=== PATIENT | female | born 1965 | race Caucasian/White ===

== ENCOUNTER 2020-03-23 10:03 | Outpatient (CLI) | payer OTHER, SELFPAY ==
--- NOTE | ~2020-03-23 | MM_ITS ---
EXAMINATION: MM screening jian BI w edward HISTORY: Screening mammogram TECHNIQUE: Craniocaudal and mediolateral oblique 3-D tomosynthesis images were obtained and synthetic 2-D images were generated. CAD analysis was submitted and interpreted. COMPARISON: 03/12/2018, 11/12/2013, 11/05/2012 bilateral digital screening mammogram examinations BREAST PARENCHYMAL COMPOSITION: There are scattered areas of fibroglandular density. FINDINGS: There are subtle microcalcifications particularly in the subareolar area; magnification vie ws are recommended. There is asymmetry in the upper outer left breast. Compression views are recommended. IMPRESSION: 1. Right multiple calcifications and left mammographic asymmetry 2. Bilateral diagnostic mammography is recommended, with ultrasound if required. BI-RADS Category 0: Incomplete: Needs additional imaging evaluation. Reviewed, dictated and finalized at location A. RTISING SALES ASSOCIATE IMPRESSION: 1. Right multiple calcifications and left mammographic asymmetry 2. Bilateral diagnostic mammography is recommended, with ultrasound if required . BI-RADS Category 0: Incomplete: Needs additional imaging evaluation.
== END 2020-03-23 10:04 | disposition home or self-care (01) ==
LOC: ANHIMG 10:06
PROVIDERS: PCP Emergency Medicine; Visit Provider Obstetrics & Gynecology
DX: Z12.31 Encounter for screening mammogram for malignant neoplasm of breast (principal); R92.8 Other abnormal and inconclusive findings on diagnostic imaging of breast
CPT/HCPCS: 77063; 77067

== ENCOUNTER 2020-04-20 13:26 | Outpatient (CLI) | payer OTHER, SELFPAY ==
--- NOTE | ~2020-04-20 | MMUS_ITS ---
EXAMINATION: MM diagnostic mammo BI, US breast BI complete HISTORY: Follow-up right breast calcifications and left breast asymmetries. TECHNIQUE: Additional 3-D tomosynthesis images of the breasts were performed and synthetic 2-D images were generated. CAD analysis was submitted and interpreted. High resolution bilateral breast ultraso und was performed. COMPARISON: Comparison to multiple prior studies sequentially, with oldest reviewed study dated 05/2010. BREAST PARENCHYMAL COMPOSITION: The breasts are heterogenously dense, which may obscure small masses. FINDINGS: MAMMOGRAPHIC FINDINGS: There are clustered calcifications upper central aspect of the right breast, middle third. These calc ifications appear to layer on the MLO and medial lateral view, likely benign milk of calcium. Bilater al breast asymmetries are less dense with spot compression views. No discrete mass identified. ULTRASOUND: Right breast ultrasound: At 8:00 near the nipple there is a 6 6 mm cyst. At 9:00, 6 cm from the nipple, there is a 1 cm cyst. Left breast ultrasound: At 3:00 near the nipple there is a 3 mm cyst. No suspicious masses are identified in either breast by ultrasound to suggest malignancy. IMPRESSION: 1. Probable benign right breast calcifications. Benign findings of the left breast. 2. Recommend 6 month follow-up diagnostic right mammogram BI-RADS category 3, probably benign findings. Reviewed, dictated and finalized at location A. HEALTH CASE MANAGER IMPRESSION: 1. Probable benign right breast calcifications. Benign findings of the left jadon ast. 2. Recommend 6 month follow-up diagnostic right mammogram BI-RADS category 3, probably benign findings.
== END 2020-04-20 13:27 | disposition home or self-care (01) ==
PROVIDERS: PCP Emergency Medicine; Visit Provider Obstetrics & Gynecology
DX: N60.02 Solitary cyst of left breast (principal); N60.01 Solitary cyst of right breast
CPT/HCPCS: 76641; 77066

== ENCOUNTER 2021-08-17 09:00 | Outpatient (CLI) | payer OTHER, SELFPAY ==
--- NOTE | ~2021-08-17 | MM_ITS ---
EXAMINATION: MM screening jian BI w edward HISTORY: Screening TECHNIQUE: Craniocaudal and mediolateral oblique 3-D tomosynthesis images were obtained and synthetic 2-D images were generated. CAD analysis was submitted and interpreted. COMPARISON: Comparison to multiple prior studies sequentially, with oldest reviewed study dated 09/04. BREAST PARENCHYMAL COMPOSITION: The breasts are heterogeneously dense, which may obscure small masses . FINDINGS: There is a developing focal asymmetry in the central aspect of the right breast, middle thi rd. There are a few punctate associated calcifications. The left breast is stable without evidence fo r malignancy. IMPRESSION: 1. Developing focal asymmetry centrally in the right breast with associated calcification. 2. Additional mammographic views and possible breast ultrasound are recommended. BI-RADS Category 0: Incomplete: Needs additional imaging evaluation. Reviewed, dictated and finalized at location A. IMPRESSION: 1. Developing focal asymmetry centrally in the right breast with associated malik cification. 2. Additional mammographic views and possible breast ultrasound are recommended . BI-RADS Category 0: Incomplete: Needs additional imaging evaluation.
== END 2021-08-17 09:01 | disposition home or self-care (01) ==
LOC: ANHIMG 09:02
PROVIDERS: PCP Emergency Medicine; Visit Provider Obstetrics & Gynecology
DX: Z12.31 Encounter for screening mammogram for malignant neoplasm of breast (principal); R92.8 Other abnormal and inconclusive findings on diagnostic imaging of breast
CPT/HCPCS: 77063; 77067

== ENCOUNTER 2021-09-17 11:20 | Outpatient (CLI) | payer OTHER, SELFPAY ==
--- NOTE | ~2021-09-17 | MMUS_ITS ---
EXAMINATION: MM diagnostic mammo unilat RT, US breast RT limited HISTORY: Developing focal asymmetry with calcification reported centrally in right breast on 2 screening mammogram TECHNIQUE: ML 3-D tomosynthesis images of the right breast were performed and synthetic 2-D images we re generated. Magnification views of the right breast in 3 projections. CAD analysis was submitted an d interpreted. High resolution pre-12:00 right breast ultrasound was performed. COMPARISON: 08/17/2021 bilateral screening mammogram 04/20/2020 bilateral diagnostic mammography and bilateral complete breast ultrasound examination 03/23/2020 bilateral screening mammogram 03/12/2018 bilateral screening mammogram FINDINGS: MAMMOGRAPHIC FINDINGS: Occasional scattered benign microcalcifications are noted. No malignant calcification is evident. No suspicious reproducible mass or significant new or developing density is evident. ULTRASOUND: 9:00 4 cm from nipple: Parallel circumscribed 2.9 x 6.9 x 5.2 mm sonolucency with through transmissio n consistent with simple cyst 9:00 6 cm from nipple: 5 x 3 x 6.4 mm probable septated cyst, with no posterior features; six-month t argeted ultrasound follow-up is recommended. 10:00 6 cm from nipple: Parallel circumscribed 3 x 8 x 7.4 mm simple cyst with through transmission p osterior enhancement 11:00 3 cm from nipple: 12 x 6 x 14 mm septated cyst with through transmission and posterior enhancem ent IMPRESSION: 1. Probable benign cysts 2. 6 month targeted right breast ultrasound follow-up is recommended with particular attention to 9:0 0 6 cm from nipple BI-RADS category 3, probably benign findings. Reviewed, dictated and finalized at location A. IMPRESSION: 1. Probable benign cysts 2. 6 month targeted right breast ultrasound follow-up is recommended with parti cular attention to 9:00 6 cm from nipple BI-RADS category 3, probably benign findings.
== END 2021-09-17 11:21 | disposition home or self-care (01) ==
PROVIDERS: PCP Emergency Medicine; Visit Provider Obstetrics & Gynecology
DX: N60.01 Solitary cyst of right breast (principal); R92.1 Mammographic calcification found on diagnostic imaging of breast
CPT/HCPCS: 76642; 77065

== ENCOUNTER 2021-10-13 09:15 | Outpatient (CLI) | payer OTHER, SELFPAY ==
[2021-10-13 09:46] LABS: Alanine Aminotransferase 15 U/L (6-35); Aspartate Amino Transferase 50 U/L (14-36)
== END 2021-10-13 09:16 | disposition home or self-care (01) ==
LOC: ANHLAB 09:22
PROVIDERS: PCP Emergency Medicine; Visit Provider Podiatrist Foot & Ankle Surgery
DX: B35.1 Tinea unguium (principal)
CPT/HCPCS: 36415; 84450; 84460

== ENCOUNTER 2022-01-17 11:13 | Outpatient (CLI) | payer OTHER, SELFPAY ==
[2022-01-17 11:46] LABS: Alanine Aminotransferase 18 U/L (6-35); Aspartate Amino Transferase 50 U/L (14-36)
== END 2022-01-17 11:14 | disposition home or self-care (01) ==
LOC: ANHLAB 11:17
PROVIDERS: PCP Emergency Medicine; Visit Provider Podiatrist Foot & Ankle Surgery
DX: B35.1 Tinea unguium (principal)
CPT/HCPCS: 36415; 84450; 84460

== ENCOUNTER 2022-04-19 11:10 | Outpatient (CLI) | payer OTHER, SELFPAY ==
--- NOTE | ~2022-04-19 | US_ITS ---
US breast RT limited DATE: 04/19/2022 11:52 INDICATION: Six-month follow-up of probably benign septated cyst at 9:00 6 cm from nipple TECHNIQUE: Real-time and color flow imaging targeted at 9:00 6 cm from nipple COMPARISON: 09/17/2021 Limited right breast ultrasound FINDINGS: There is interval decreased size of the previously reported septated cyst at 9:00, currentl y measuring approximately 3.5 x 2.4 x 4.4 mm, compared to 2 6.2 mm dimension on 09/17/2021. IMPRESSION: BI-RADS Category 2: Benign Recommendation: Routine annual mammographic screening Reviewed, dictated and finalized at Location A. Reviewed, dictated and finalized at location A. NCIAL ANALYST ACCOUNTANT
== END 2022-04-19 11:11 | disposition home or self-care (01) ==
PROVIDERS: PCP Emergency Medicine; Visit Provider Obstetrics & Gynecology
DX: N60.11 Diffuse cystic mastopathy of right breast (principal)
CPT/HCPCS: 76642

== ENCOUNTER 2022-05-10 09:52 | Outpatient (CLI) | payer OTHER, SELFPAY ==
[2022-05-10 10:22] LABS: Alanine Aminotransferase 19 U/L (6-35); Aspartate Amino Transferase 31 U/L (14-36)
== END 2022-05-10 09:53 | disposition home or self-care (01) ==
LOC: ANHLAB 09:54
PROVIDERS: PCP Emergency Medicine; Visit Provider Podiatrist Foot & Ankle Surgery
DX: B35.1 Tinea unguium (principal)
CPT/HCPCS: 36415; 84450; 84460

== ENCOUNTER 2022-12-27 11:20 | Outpatient (CLI) | payer OTHER, SELFPAY ==
[2022-12-29 05:26] LABS: FSH 139.7 mIU/mL (***)
[2023-01-01 15:07] LABS: Estradiol, Ultrasensitive 3 pg/mL
== END 2022-12-27 11:21 | disposition home or self-care (01) ==
LOC: ANHLAB 11:24
PROVIDERS: PCP Emergency Medicine; Visit Provider Obstetrics & Gynecology
DX: N95.1 Menopausal and female climacteric states (principal)
CPT/HCPCS: 36415; 82670; 83001

== ENCOUNTER 2023-08-16 14:51 | Outpatient (CLI) | payer OTHER, SELFPAY ==
--- NOTE | 2023-08-16 15:20 | ECG_ITS ---
SEE SCANNED COPY FOR CONFIRMED REPORT MTDD
== END 2023-08-16 14:52 | disposition home or self-care (01) ==
PROVIDERS: PCP Nurse Practitioner Adult Health
DX: Z01.810 Encounter for preprocedural cardiovascular examination (principal); Z41.1 Encounter for cosmetic surgery
CPT/HCPCS: 93005

== ENCOUNTER 2023-08-16 15:47 | Outpatient (CLI) | payer OTHER, SELFPAY ==
--- NOTE | ~2023-08-16 | MM_ITS ---
EXAMINATION: MM screening jian BI w edward HISTORY: Screening mammogram TECHNIQUE: Craniocaudal and mediolateral oblique 3-D tomosynthesis images were obtained and synthetic 2-D images were generated. CAD analysis was submitted and interpreted. COMPARISON: 04/19/2022 Limited right breast ultrasound examination 09/17/2021 diagnostic right mammogram and limited right breast ultrasound examination 08/17/2021 bilateral screening mammogram BREAST PARENCHYMAL COMPOSITION: The breasts are heterogeneously dense, which may obscure small masses . FINDINGS: There is no evidence of suspicious mass, calcification, or architectural distortion to sugg est malignancy in either breast. There has been no suspicious interval change. IMPRESSION: 1. No mammographic evidence of malignancy. 2. Recommend routine screening mammography in one year. BI-RADS Category 1: Negative Reviewed, dictated and finalized at location A.
== END 2023-08-16 15:48 | disposition home or self-care (01) ==
PROVIDERS: PCP Nurse Practitioner Adult Health; Visit Provider Obstetrics & Gynecology
DX: Z12.31 Encounter for screening mammogram for malignant neoplasm of breast (principal)
CPT/HCPCS: 77063; 77067

== ENCOUNTER 2023-11-08 10:03 | Emergency (ER) | payer OTHER, SELFPAY ==
[2023-11-08 10:11] VITALS: BP 121/75; PULSE 74; RESP 16; TEMP 36.5; O2SAT 100
--- NOTE | 2023-11-08 10:11 | ED.SKABFB ---
HPI - Skin/Abscess/Foreign Bdy General Chief complaint: Skin/Abscess/Foreign Body Stated complaint: RASH Time Seen by Provider: 11/08/23 10:11 Source: patient Mode of arrival: ambulatory Limitations: no limitations History of Present Illness HPI narrative: 57 yo female presented for c/o rash to left buttock since 10/25. Pt states she has been running and sweating etc. Endorses mild itching and pain. denies drainage to the site. Has applied Gold Summers powder, powder spray, and has been trying to keep the site dry. Related Data Home Medications Medication Instructions Recorded Confirmed cetirizine 10 mg capsule (Zyrtec) 10 mg PO DAILY PRN 12/21/21 01/02/23 alprazolam 0.25 mg tablet mg 11/08/23 11/08/23 proparacaine 0.5 % eye drops drp 11/08/23 triamcinolone acetonide 0.1 % applic topical 11/08/23 topical cream Allergies Allergy/AdvReac Type Severity Reaction Status Date / Time No Known Allergies Allergy Verified 11/08/23 10:08 Review of Systems Review of Systems: CONSTITUTIONAL: Denies body aches, fever, chills, or sweats. EYES: Denies visual changes, redness, or discharge. ENT: Denies rhinorrhea, congestion CARDIOVASCULAR: Denies chest pain, palpitations, or edema. RESPIRATORY: Denies cough or dyspnea. GASTROINTESTINAL: Denies abdominal pain, nausea, vomiting, or diarrhea. SKIN: reports rash to buttocks MUSCULOSKELETAL: Denies back pain, joint pain, or myalgia. NEUROLOGIC: Denies headache, numbness, tingling, or weakness. 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 Please see nursing chart for further information. There is no relevant family history pertinent to the presenting complaint Exam Narrative: GENERAL: Well-appearing ENT: Mucous membranes moist. Oropharynx without edema, erythema or lesions. CHEST: Clear to auscultation. HEART: Regular rate and rhythm. SKIN: Warm, dry. Left medial buttock with approx 0.5 cm area of excoriated skin; right medial buttock with mildly erythematous patch c/w yeast opposite to the lesion. No drainage, nontender. NEURO: Alert and oriented x3. Course Course Emergency Course: Patient is aware of diagnosis, understands and agrees to treatment plan. Anticipatory guidance given. Patient agrees to follow-up as directed and is aware of reasons to seek care at the emergency department. Portions of this record may have been created with voice recognition software Level of Care: Express Care Visit Vital Signs Vital signs: Vital Signs Temperature 97.7 F
[2023-11-08 10:36] VITALS: BP 121/75; PULSE 74; RESP 16; TEMP 36.5; O2SAT 100
== END 2023-11-08 10:41 | disposition home or self-care (01) ==
PROVIDERS: Emergency Provider Nurse Practitioner Family
DX: L30.9 Dermatitis, unspecified (principal)
CPT/HCPCS: 99213; G0463

== ENCOUNTER 2024-06-24 11:03 | Emergency (ER) | payer OTHER, SELFPAY ==
--- NOTE | 2024-06-24 11:04 | ED.URI ---
HPI - URI/Sore Throat General Chief Complaint: Upper Respiratory Infection Stated Complaint: Upper Respiratory Symptoms Time Seen by Provider: 06/24/24 11:04 Source: patient Mode of arrival: ambulatory Limitations: no limitations History of Present Illness HPI Narrative: Sherin is a 58-year-old female patient presenting to the clinic today with complaints of feeling feverish, runny nose, cough, congestion, sore throat, and body aches. She reports the symptoms have been going on for approximately 2 days. Denies any chest pain or shortness of breath. MD elicited complaint: fever, cough, sore throat and nasal congestion Related Data Home Medications ?Medication ?Instructions ?Recorded ?Confirmed ?Last Taken ?Type cetirizine 10 mg capsule (Zyrtec) 10 mg PO DAILY PRN 12/21/21 01/15/24 Unknown History alprazolam 0.25 mg tablet mg 11/08/23 01/15/24 Unknown History Allergies Allergy/AdvReac Type Severity Reaction Status Date / Time No Known Allergies Allergy Verified 06/24/24 11:19 Review of Systems Review of Systems: Pertinent positives per HPI. Patient denies any rash, headache, visual changes, dizziness, shortness of breath, chest pain, palpitations, nausea, vomiting, diarrhea, constipation, abdominal pain, or any urinary issues. 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 Abnormal Pap smear of cervix 04/02/2018 LGSIL +Hpv Cyst of right breast Calcification of right breast on mammography Surgical History Surgical History Hx of breast reduction, elective (09/26/23) History of tubal ligation (~1996) History of hemorrhoidectomy History of colposcopy with cervical biopsy 05/23/18 benign Family History Family History Father Acute myocardial infarction Grandparent Carcinoma of colon maternal grandmother Other Breast cancer paternal aunt Social History Social History Smoking status: Never smoker Second hand tobacco smoke exposure: No Alcohol intake: former Alcohol use details: social 1-2 month ? 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 There is no relevant family history pertinent to the patient complaint. Exam Narrative: General: Well-developed, well nourished, in no apparent distress Head: Normocephalic, atraumatic Eyes: Pupils equally round and reactive to light bilaterally, EOM intact, sclera and conjunctive clear, no discharge, lids normal Ears: TMs intact and clear, ear canals clear, no drainage, grossly hearing normal. Nose: Nares patent, clear nasal discharge, no inflammation, no sinus tenderness. Mouth: Oral pharynx red without lesions or masses, good dentition, MMM. Postnasal drip Neck: Supple, trachea midline, no enlargement of anterior or posterior cervical nodes, no thyroid masses or goiter palpable. Cardio: Regular rate and rhythm, s1 and s2 normal, no murmur appreciated. Resp: Clear to auscultation bilaterally, no rhonchi, rales, wheezing or rubs Course Course Emergency Course: Portions of this record may have been created with voice recognition software. Level of Care: Express Care Visit Vital Signs Vital signs: Vital Signs Temperature 37.0 C 06/24/24 11:14 Pulse Rate 104 H 06/24/24 11:14 Respiratory Rate 18 06/24/24 11:14 Blood Pressure 114/93 H 06/24/24 11:14 Pulse Oximetry 100 06/24/24 11:14 Oxygen Delivery Room Air 06/24/24 11:14 Temperature 37.0 C 06/24/24 11:14 Pulse Rate 104 H 06/24/24 11:14 Respiratory Rate 18 06/24/24 11:14 Blood Pressure 114/93 H 06/24/24 11:14 Pulse Oximetry 100 06/24/24 11:14 Oxygen Delivery Room Air 06/24/24 11:14 Vital signs reviewed MDM - URI/Sore Throat MDM Narrative Medical decision making narrative: At the time of visit patient is resting comfortably on the exam table. Patient appears to be nontoxic. Labs: COVID, influenza, and strep test were all negative in the clinic today. We will send strep for culture. Plan: I suspect patient has URI with cough and congestion. Prescription for prednisone was sent to the pharmacy. Supportive measures were discussed with the patient and they voiced understanding discharge instructions and agrees to treatment plan. Return precautions reviewed Differential Diagnosis Differential diagnosis: Likely upper respiratory infection, otitis media, sinusitis, viral infection, bronchitis, influenza, pharyngitis and other (COVID) Discharge Plan Discharge Clinical Impression: Upper respiratory infection with cough and congestion, Pharyngitis Patient Disposition: Home, Self-Care Condition: Stable Instructions: Antibiotic Form, Pharyngitis (ED), Cold Symptoms (ED) Additional Instructions: COVID, influenza, and strep test were all negative in the clinic today. We will send strep for culture if this comes back positive we will contact him place you on antibiotics at that time. Take prescription medications only as prescribed-prednisone Increase fluids and stay well hydrated Tylenol/motrin for pain/fever Flonase and OTC antihistamines as directed Vicks vapor rub to open sinuses Sinus rinses for congestion Cepacol spray, cough drops, throat lozenges, warm tea with honey/lemon, gargle salt water to soothe throat BRAT diet for diarrhea Clear liquids x 24 hours then advance as tolerated for nausea/vomiting Go to the ED if you develop a worsening in your condition- high fever not controlled by Tylenol or Motrin, dehydration, weakness, lethargy, shortness of breath, or chest pain. Follow up with your PCP in 3-5 days if symptoms persist. Patient Language: Kazakh Prescriptions: New prednisone 20 mg tablet 40 mg PO DAILY 5 Days Qty: 10 0RF No Action alprazolam 0.25 mg tablet estradiol 0.01 % (0.1 mg/gram) cream 1 g vaginal 2XW Qty: 42.5 3RF Zyrtec 10 mg capsule 10 mg PO DAILY PRN estradiol 1 mg tablet 1 mg PO DAILY Qty: 90 3RF progesterone micronized [Prometrium] 200 mg capsule 200 mg PO QHS Qty: 90 0RF valacyclovir [Valtrex] 500 mg tablet 500 mg PO Q12H Qty: 14 0RF Rx Instructions: take 1 tab every 12 hours for 7 days Follow-up/Referrals: PHYSICIAN,LEVEL GLASS FORMING MACHINE OPERATOR [Primary Care Provider] - Time of Disposition: 11:39 Quality NIHSS Nursing Documentation ED NIHSS nursing documentation: reviewed/agree
[2024-06-24 11:14] VITALS: BP 114/93; PULSE 104; RESP 18; TEMP 37; O2SAT 100
[2024-06-24 11:30] LABS: EDSTREPNEGPOS1 Negative (Negative)
[2024-06-24 11:38] LABS: EDCOVIDSCREEN Negative (Negative); EDINFLUASCREEN Negative (Negative); EDINFLUBSCREEN Negative (Negative)
== END 2024-06-24 11:43 | disposition home or self-care (01) ==
PROVIDERS: Emergency Provider Nurse Practitioner Family
DX: J06.9 Acute upper respiratory infection, unspecified (principal); R05.9 Cough, unspecified; J02.9 Acute pharyngitis, unspecified; Z20.822 Contact with and (suspected) exposure to COVID-19
CPT/HCPCS: 87081; 87426; 87804; 87880; 99213; G0463

== ENCOUNTER 2024-10-01 15:57 | Outpatient (CLI) | payer OTHER, SELFPAY ==
--- NOTE | ~2024-10-01 | MM_ITS ---
EXAMINATION: MM screening [facility] BI [facility] HISTORY: Screening TECHNIQUE: Craniocaudal and mediolateral oblique 3-D tomosynthesis images were obtained and synthetic 2-D images were generated. CAD analysis was submitted and interpreted. COMPARISON: Comparison to multiple prior studies sequentially, with oldest reviewed study dated 02/22. BREAST PARENCHYMAL COMPOSITION: Not dense: There are scattered areas of fibroglandular density. FINDINGS: There is a developing mass in the upper outer quadrant of the right breast, posterior third . There is architectural distortion in the upper central aspect of the right breast, posterior third, not definitely seen on prior study. There are developing asymmetries centered in the upper outer anita drant of the left breast. IMPRESSION: 1. Developing bilateral breast abnormalities discussed above. 2. Additional mammographic views and possible breast ultrasound are recommended. BI-RADS Category 0: Incomplete: Needs additional imaging evaluation. Reviewed, dictated and finalized at location B. IMPRESSION: 1. Developing bilateral breast abnormalities discussed above. 2. Additional mammographic views and possible breast ultrasound are recommended . BI-RADS Category 0: Incomplete: Needs additional imaging evaluation.
--- OUTSIDE RECORDS SUMMARY | 2024-10-01 17:07 | XMS_ITS | Continuity of Care Document ---
Author Organization [facility] Address [address] [place] [address] Phone Care Team Providers Care Baggage Clerk Name Role Phone Kahterine Martinez Unavailable Unavailabl e Allergies, Adverse Reactions, Alerts Substance Reaction Status Criticality No Known Allergies Active No Inform ation Procedures Procedure Date X-ray exam elbow, 3+ views Office/outpatient visit,est, mod 2023 X-ray exam elbow, 3+ views Heelbow Office/outpatient visit,new, mod 2023 Advance Directives Directive Yes / No Effective Date File Name No Information Encounters Encounter Description Practice Location Reason(s) For Visit Diagnoses Date Provider Providers Copied on Encounter [facility], [address], [id number], [place] tel:[phone] [facility] Injury of left elbow, initial encounterContusi on of left elbow, initial encounter 4 Deon Murphy. [address], [address], [place], [place], [id number], [place]. tel:[phone] Office/outpa tient visit,est, mod [facility], [address] [address], [place], [place], [id number], [place] tel:[phone] [facility] Left elbow (chief complaint) Contusion of left elbow, subsequent encounter b0 4 Chan Black. [address], [address], [place], [place], [id number], [place]. tel:[phone] Office/outpa tient visit,new, [facility], [address], [place], [place], [id number], [place] tel:[phone] [facility] Left elbow (chief complaint) Injury of left elbow, initial encounterContusi on of left elbow, initial encounter Chan Black. [address], [address], [place], [place], [id number], [place]. tel:[phone] Family History Family Member Type Diagnosis Age At Onset No Information Immunizations Vaccine Date Status Comments influenza, injectable, quadrivalent, (3 years or older) administered Note: pt refused ; S ource: Source Unspecified Payers Payer name Insurance type Covered green party ID Authoriza kayleigh(s) Nathen [id number] Social History Type Description Quantity Date Captured Comments Alcohol Use Details Unknown Caffeine Use Details Unknown Tobacco Use Status No Information Smoking Status No Information Sex Female Chief Complaint And Reason For Visit No Information Reason For Referral Reason For Referral No Information Plan Of Treatment Date Type Action Status Referral Ordered: X-ray exam elbow, 3+ views LT ordered History Of Present Illness Encounter Date Complaint History Of Prese nt Illness Left elbow Janene is over 3 weeks out from an injury which resulted in a contusion of the left elbow on May 12, 2023. She was last seen in the office 3 weeks ago on May 16, 2023. At that time I provided her with a Heelbo elbow pad. She has been wearing the elbow pad, but she tells me it is stretched out and does not fit well. She continues to have pain on the posterior left elbow. 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 She presents for follow-up Andressa Duff is seen i n the office today as a new patient. She presents with a left elbow injury. On May 12, 2023 she slipped on ice in her driveway and fell backwards. She hit her posterior left elbow on the driveway. She immediately had elbow pain. She went to and Urgent Care in [place], [place] and left elbow xrays were completed. She was referred to [facility]. While in the emergency department she was told she had an occult fracture of the left elbow. I independently reviewed the x-rays, and I do not appreciate a fracture. She was given a sling. Her left elbow pain and motion have significantly improved over the last several days. She denies numbness and tingling. She presents to the office today for evaluation and treatment of her left elbow injury Functional Status Date Functional Assessmen t No Information Instructions Date Instruction Additional Infor mation No Information Assessments Type Assessment Date assessment Injury of left elbow, initial en counter assessment Contusion of left elbow, initial encounter Patient Care Teams Name Effective Dates (start - stop) Status Members No Information
--- OUTSIDE RECORDS SUMMARY | 2024-10-01 17:07 | XMS_ITS | Data Portability ---
Author Organization [place] [facility], [facility] Address [address] [place] [phone] Assessment No assessment recorded. Plan of Treatment Reminders Order Date Submit Date Provider Last Modified By Organization Details Last Modified Time Details Appointments None recorded. Lab rapid SARS CoV 2 Ag, QL IA, respiratory specimen [address], [address] [place] [address], [place], [address], 13:41:53 rapid flu (A+B) [address], [address] [place] [address], [place], [address], 13:41:53 Referral None recorded. Procedures None recorded. Surgeries None recorded. Imaging None recorded. Medication Orders dexamethaso ne sodium phosphate 4 mg/mL injection solution 2022 023 [email or web address] Not available 14:02:44 azithromyci n 250 mg tablet 2022 023 [id number], [address] [place], [place], [phone], 13:42:01 Patient TargetsNo targets recorded. Patient Instructions Encounter Date Encounter Id Patient Instructions Last Modified By Organization Details Last Modified Time 08/15/2022 [id number] Discharge Instructions [email or web address] [id number] Not available 08/15/2022 13:41:53 Acute Sinusitis: Care Instructions [email or web address] Not available 08/15/2022 13:41:53 Reason for Referral None Reported. Results Created Date Observation Date Name Description Value Unit Range Abnormal Flag Note LastModifiedBy Organization Detail LastModifiedTime 08/16/19 23 08/15/2022 rapid flu (A+B) Flu A negati ve Not Available [facility] [place] [address] [address], [place], [address], 08/15/2022 13:41:41 08/16/19 23 08/15/2022 rapid flu (A+B) Flu B negati ve [place] [facility] [place] [address] [address], [place], [address], 08/15/2022 13:41:41 08/16/19 23 08/15/2022 rapid SARS CoV 2 Ag, QL IA, respi rator y speci men Rapid SARS Antigen negati [place] [address] [address], [place], [address], 08/15/2022 13:41:37 Result Notes None recorded. Problems Name Problem SNOMED Code Status Onset Date Resolution Date Notes Provider Name and Address Organization Details Recorded Time Cough 03584211 Active 023 LONNIE MONTEIRO [facility] 12:41:56 Sinusitis 98090998 Active 023 LONNIE MONTEIRO [facility] 3 12:42:03 Problem Notes None recorded. Medical Equipment None Reported. Allergies No known drug allergies Medications Name Sig Start Date Stop Date Status Note LastModified by Organization Details LastModified Time azithromyci n 250 mg tablet TAKE 2 TABLETS (500 MG) BY ORAL ROUTE ONCE DAILY FOR 1 DAY THEN 1 TABLET (250 MG) BY ORAL ROUTE ONCE DAILY FOR 4 DAYS active Not Available Not Available No t Available prednisone 20 mg tablet 08/15 completed Not Available Not Available Not Available terbinafine HCl 250 mg tablet TAKE 1 TABLET BY MOUTH ONCE DAILY active Not Available Not Available No t Available alprazolam 0.25 mg tablet TAKE 1 TABLET BY MOUTH EVERY NIGHT AT BEDTIME NEEDED FOR ANXIETY OR SLEEP active Not Available Not Available No t Available cephalexin 500 mg capsule TAKE 2 CAPSULES BY MOUTH TWICE DAILY 08/15 completed Not Available Not Available Not Available dexamethaso ne sodium phosphate 4 mg/mL injection solution Inject 10 mg by intramusc ular route. 2022 active Not Available Not Available Not Avai lable Vitals Date Recorded Heart rate Respiratory rate Oxygen saturation Oxygen saturation in Arterial blood by Pulse oximetry Body temperature Body height Body weight Systolic blood pressure Diastolic blood pressure Provider Name and Address Organization Details Last Updated DateTime 98 /min 18 /min 99 % 99 % 97.3 [degF] 165.1 cm 96997.0 1 g 120 mm[Hg] 81 mm[Hg] LONNIE CAYETANO [facility] 12:41:18 Social History Question Answer Notes LastModified by Organizat ion Details LastModified Time Tobacco Smoking Status Never Smoker LONNIE CAYETANO [facility] 08/15/2022 12:42:10 Alcohol Use Occasional [email or web address] Information n ot available 08/15/2022 What Was The Date Of Your Most Recent Tobacco Screening? 08/15/2022 [email or web address] Information not available 08/15/2022 Sex: Unknown Functional Status Question Answer Note LastModified by Organization D etails LastModified Time Do you or have you ever used any other forms of tobacco or nicotine? No [email or web address] Information not available 08/15/2022 Mental Status None recorded. Family History Nothing Reported. Medical History Condition Response Anxiety/Depression Y Discussed with patient No Past Medical H x N Gynecological History Statement/Question Response Current Control Method Menopause LMP Unknown Obstetrics History GPAL:G 0 P 0 0 0 0 Past Encounters Encounter ID Performer Location Encounter Start Date Encounter Closed Date Diagnosis/Indication Diagnosis SNOMED-CT Code Diagnosis ICD10 Code Diagnosis Note [id number] RIAZ GAMBINO [facility] [address] [facility] [address] [place] [address] 08/15/2022 11:40:34 08/15/2022 13:56:45 Acute sinusitis 70796958 J01.90 Pain in throat 019221046 R07.0 Bilateral earache 504595 003 H92.03 Health Concerns Section Related Observation LastModified by Organization Detai ls LastModified Time None Recorded Concern Status LastModified by Organization Details LastModified Time None Recorded Advance Directives Directive None Recorded Payers Insurance Date Sequence Insurance Name Policy Number Policy Duran Covered Member ID Duran Member ID Guarantor Name 08/15/2022 1 *SELF PAY* Jose Barba Notes Date Note Type Note Provider Name a nd Address Organization Details Recorded Time 08/15/2022 text/html Sinusitis UCReported bypatient.Locati on:maxillary; frontal Quality:minimal discomfort;worse jennie;congested Onset/ Duration:5 day(s) ago Timing:wax/wane; worse in the morning Severity:moderat e Associated Symptoms:no fever/chills; no difficulty breathing;nasal discharge from both nostrils;headach e forehead;facial pain bilaterally;sinu s pain forehead;sore throat;thick phlegm in throat;constantl y clearing the throat;nasal passage blockage bilaterally;ear fullness;cough RIAZ LANGLEY [address], [place], [address], [facility] - [facility], [facility] 08/15/2022 13:43:29 OBGyn Episode No OBEpisode recorded.
--- OUTSIDE RECORDS SUMMARY | 2024-10-01 17:07 | XMS_ITS | Referral Summary ---
Author Organization [facility] Virtual Care Address [address] [place] [phone] Phone Care Team Providers Care Computational Theory Scientist Name Role Phone Daniel Hay MD Primary Care Provider + Allergies No known active allergies Medications cetirizine (ZyrTEC) 10 mg tablet Take 1 tablet (10 mg total) by mouth 02/23/2015 Active estradioL (ESTRACE) 0.5 mg tablet Take 1 tablet (0.5 mg total) by mouth daily 05/03/2023 Active progesterone (PROMETRIUM) 200 mg capsule TAKE 1 CAPSULE BY MOUTH EVERY DAY AT BEDTIME 05/03/2023 Active HYDROcodone-bessie taminophen (NORCO) 5-325 mg per tabletIndicatio ns:Pain Take 1 tablet by mouth every 6 (six) hours as needed for pain 6 tablet 05/11/2023 Active Active Problems No known active problems Social History Tobacco Use Types Packs/Day Years Used Date Smoking Tobacco: Never Smokeless Tobacco: Never Personal Safety Answer Date Recorded Have you ever been in or are you currently in a harmful physical or emotional relationship or is someone making you feel afraid or unsafe? Denies 05/11/2023 Comments Unknown Sex and Gender Information Value Date Recorded Sex Assigned at Not on file Legal Sex Female 8:46 PM ADJUSTER [employer] Gender Identity Not on file Sexual Orientation Not on file Last Filed Vital Signs Vital Sign Reading Time Taken Comments Blood Pressure 106/65 05/11/2023 12:10 PM [employer] Pulse 89 05/11/2023 12:10 PM [employer] Temperature 36.8 C (98.2 F) 05/11/2023 12:10 PM [employer] Respiratory Rate 16 05/11/2023 12:10 PM [employer] Oxygen Saturation 99% 05/11/2023 12:10 PM [employer] Inhaled Oxygen Concentration - - Weight 59 kg (130 lb) 05/11/2023 12:10 PM [employer] Height 165.1 cm (5' 5) 05/11/2023 12:10 PM [employer] Body Mass Index 21.63 05/11/2023 12:10 PM [employer] Plan of Treatment Not on file Insurance [employer] OPEN ACCESS Care Teams Computational Theory Scientist Relationship Specialty Start Date End Date Daniel Hay MD PCP - General Internal Medicine 12/15/20
--- OUTSIDE RECORDS SUMMARY | 2024-10-01 17:07 | XMS_ITS | Clinical Summary ---
Author Organization [facility] Virtual Care Address [address] [place] [phone] Phone Care Team Providers Care Vending Supervisor Name Role Phone Daniel Hay MD Primary [...] Active Active Problems No known active problems Surgical History Surgery Date Site/Laterality Comments NO PAST SURGERIES Medical History Medical History Date Comments No pertinent past medical history Social History Tobacco Use Types Packs/Day Years [...] on file Legal Sex Female 8:46 PM THERAPIST PHYS Gender Identity Not on file Sexual Orientation Not on file Obstetrics History Last Filed Vital Signs Vital Sign Reading Time Taken Comments Blood Pressure 106/65 05/11/2023 12:10 PM THERAPIST PHYS Pulse 89 05/11/2023 12:10 PM THERAPIST PHYS Temperature 36.8 C (98.2 F) 05/11/2023 12:10 PM THERAPIST PHYS Respiratory Rate 16 05/11/2023 12:10 PM THERAPIST PHYS Oxygen Saturation 99% 05/11/2023 12:10 PM THERAPIST PHYS Inhaled Oxygen Concentration - - Weight 59 kg (130 lb) 05/11/2023 12:10 PM THERAPIST PHYS Height 165.1 cm (5' 5) 05/11/2023 12:10 PM THERAPIST PHYS Body Mass Index 21.63 05/11/2023 12:10 PM THERAPIST PHYS Plan of Treatment Health Maintenance Due Date Last Done Comments Breast Cancer Screening-Mammogram 1967 Cervical Cancer Screening 1967 Colon Cancer Screening-Colonoscopy 1967 Depression Screening 1967 Hepatitis C Screening 1967 DTaP/Tdap/Td Vaccine (1 - Tdap) 12/11/1978 Hepatitis B Screening 12/11/1985 Regular Well Visit/Exam 18-64 12/11/1985 Zoster Vaccine (1 of 2) 12/11/2017 Influenza Vaccine (Season Ended) 2024 Pneumococcal vaccine <65 Aged Out No longer eligible based on patient's age to complete this topic Insurance [facility] [place] [address] Search to Phone OPEN ACCESS Care Teams Vending Supervisor Relationship Specialty Start Date End Date Daniel Hay MD PCP - General Internal Medicine 12/15/20
== END 2024-10-01 15:58 | disposition home or self-care (01) ==
PROVIDERS: Visit Provider Obstetrics & Gynecology
DX: Z12.31 Encounter for screening mammogram for malignant neoplasm of breast (principal); R92.8 Other abnormal and inconclusive findings on diagnostic imaging of breast
CPT/HCPCS: 77063; 77067

== ENCOUNTER 2024-10-24 13:00 | Outpatient (CLI) | payer OTHER, SELFPAY ==
--- NOTE | ~2024-10-24 | MMUS_ITS ---
EXAMINATION: MM diagnostic jian BI w edward, US breast BI limited HISTORY: Bilateral breast asymmetries TECHNIQUE: Additional 3-D tomosynthesis images of the breasts were performed and synthetic 2-D images were generated. CAD analysis was submitted and interpreted. High resolution limited bilateral breast ultrasound was performed. COMPARISON: 10/01/2024, 08/16/2023, 09/17/2021, 08/17/2021 BREAST PARENCHYMAL COMPOSITION:Not Dense. There are scattered areas of fibroglandular density. FINDINGS: MAMMOGRAPHIC FINDINGS: Bilateral asymmetries demonstrate relative effacement. No definite persistent mass lesion identified. No suspicious mammographic calcification. ULTRASOUND: Sonographic imaging was performed in the bilateral upper outer quadrants. There is an 8 x 7 x 3 mm pa rallel circumscribed hypoechoic mass at the 10:00 position right breast, 4 cm from nipple versus poss ibly focal periventricular tissue. There is a 5 x 3 x 2 mm ovoid hypoechoic mass, parallel, circumscr ibed, the left breast 2:00 position, 4 cm from the nipple. There is a 2 mm probable cyst at the left breast 3:00 position, 2 cm from the nipple IMPRESSION: No definite evidence for malignancy. Probable benign findings, as above. Six-month follow-up bilater al mammography and targeted bilateral breast sonography recommended. BI-RADS category 3, probably benign findings. Reviewed, dictated and finalized at location . IMPRESSION: No definite evidence for malignancy. Probable benign findings, as above. Six-m [facility] follow-up bilateral mammography and targeted bilateral breast sonography r ecommended. BI-RADS category 3, probably benign findings. IMPRESSION: No definite evidence for malignancy. Probable benign findings, as above. Six-m ont follow-up bilateral mammography and targeted bilateral breast sonography r ecommended. BI-RADS category 3, probably benign findings.
--- OUTSIDE RECORDS SUMMARY | 2024-10-24 13:11 | XMS_ITS | Encounter Summary ---
Author Organization [facility] Address [facility] [place] [address] Care Team Providers Care Mailroom Associate Name Role Phone Daniel Hay MD Primary Care Provider + [phone] Fabricio Penaloza MD Unavailable [phone] Nan SmithNP Primary Care Provider [phone] Monte WhiteC Primary Care Provider [phone] Epifanio Abreu NP Primary Care Provide r Jayesh Gilmore MD Primary Care Provider [phone] John Gilmore MD Primary Care Provider [phone] Encounter Details Date Type Department Care Team (Late st Contact Info) Description 06/03/2021 Tapdaq Message Enc [facility] Family & Internal Medicine [address] [address] Nguyen [facility] Provider symptoms/appointment Social History Tobacco Use Types Packs/Day Years Used Date Smoking Tobacco: Never Smokeless Tobacco: Never Alcohol Use Standard Drinks/Week Comments Yes 0 (1 standard drink = 0.6 oz pur e alcohol) PHQ-2 Answer Date Recorded PHQ-2 Score - If the patient scores above 3, please move on to questions 3-9 0 05/04/2021 Comments No Sex and Gender Information Value Date Recorded Sex Assigned at Not on file Legal Sex Female 9:13 PM CDT Gender Identity Not on file Sexual Orientation Not on file COVID-19 Exposure Response Date Recorded In the last 10 days, have yo u been in contact with someone who was confirmed or suspected to have Coronavirus/COVID-19? Unable to assess 06/04/2021 6:59 AM CYBER SYSTEMS OPERATIONS SPECIALIST documented as of this encounter Plan of Treatment Upcoming Encounters Date Type Department Care Team (Late st Contact Info) Description 01/20/2025 11:20 AM CDT Office Visit [facility] Family & Internal Medicine [facility] [address] [place] [address] [place] [address] [facility] [address] [place] [address] documented as of this encounter Visit Diagnoses Not on filedocumented in this encounter Additional Health Concerns Assessment Noted Time PHQ-9 Depression Total Score: 0 05/04/19 9:04 AM CYBER SYSTEMS OPERATIONS SPECIALIST documented as of this encounter Care Teams Mailroom Associate Relationship Specialty Start Date End Date Daniel Hay MD PCP - General INTERNAL MEDICINE 07/11/18 06/03/21 Nan Smith APNP [address] [place] [address] PCP - General Nurse Practitioner Family 06/04/21 12/12/22 Monet White, ANNIKAC [address] [address] PCP - General PHYSICIAN PRODUCE SPECIALIST 12/13/22 06/21/23 [place] [address] [address] PCP - General NURSE PRACTITIONER ADULT HEALTH 06/22/23 11/09/23 [place] [address] [address] PCP - General INTERNAL MEDICINE 11/10/23 06/23/24 [place] [address] [address] PCP - General INTERNAL MEDICINE 06/24/24 Fabricio Penaloza MD [address] [facility] [address] [place] [address] Referring Physician NORY 04/01/20 documented as of this encounter
--- OUTSIDE RECORDS SUMMARY | 2024-10-24 13:11 | XMS_ITS | Clinical Summary ---
Author Organization [facility] Address [address] [place] [address] Care Team Providers Care Multi Mission Helicopter Aircrewman Name Role Phone Fabricio Penaloza MD Unavailable [phone] John Gilmore MD Primary Care Provider [phone] Allergies No known active allergies Medications cetirizine 10 MG tablet Take 1 tablet (10 mg total) by mouth. 5 Active Clobetasol Propionate 0.05 % Liquid 1 Active vitamin C 500 MG tablet Take 2 tablets (1,000 mg total) by mouth daily. Active Zinc Sulfate (ZINC 15 OR) Take 50 mcg by mouth daily. Active vitamin D3, cholecalciferol, 1000 UNIT Tab tablet Take 1 tablet (1,000 Units total) by mouth daily. Active probiotic Cap capsule Take 1 capsule by mouth daily. Active Collagen Hydrolysate Powder Take 1 Scoop by mouth daily. Active progesterone (PROMETRIUM) 200 MG capsule Take 1 capsule (200 mg total) by mouth nightly at bedtime. Active valACYclovir (VALTREX) 500 MG tablet Take 1 tablet (500 mg total) by mouth every 12 (twelve) hours. 3 Active estradiol (ESTRACE) 1 MG tablet Take 1 tablet (1 mg total) by mouth daily. 5 Active triamcinolone (KENALOG) 0.1 % ointmentIndicati ons:Allergic dermatitis Apply topically 2 (two) times daily. 80 g 5 Active ALPRAZolam (XANAX) 0.25 MG tabletIndication s:Anxiety TAKE 1 TABLET BY MOUTH NIGHTLY NEEDED FOR SLEEP(WITH TRAVEL). 10 tablet 5 Active Active Problems Problem Noted Date Diagnosed Date Allergic dermatitis 07/22/2024 Assessment & Plan (07/22/2024 11:57 AM CDT): At waist line -looks contact /allergic dermatitis - will rx with topical steroid and hydroxyzine Pt to return to clinic if problem persists Abnormal mammogram of both breasts 04/01/2020 Overview (04/01/2020): Managed by Fabricio Penaloza Anxiety 12/18/2019 Assessment & Plan (07/22/2024 11:58 AM CDT): With travel -pt gets anxiety attacks and insomnia with travel Takes alprazolam prn - pt is aware of risks with alcohol and chronic use BMI 21.0-21.9, adult 03/07/2016 Overview (06/05/2018): Transitioned From: Body mass index (BMI) 22.0-22.9, adult Insomnia 02/23/2015 Resolved Problems Problem Noted Date Diagnosed Date Resolved Date Cough 08/09/2022 07/22/2024 Sinusitis 08/09/2022 07/22/2024 Paronychia of great toe of left foot 07/24/2018 12/15/2019 Visit for suture removal 11/14/2017 Laceration of hand 11/12/2017 9 Medication management 08/24/20152024 Immunizations Immunization Administration Dates Next Due PFIZER COVID-19 (ORIGINAL FO RMULATION, PURPLE CAP) mRNA, LNP-S, PF, 30 MCG/0.3 ML DOSE 01/17/2021,12/22/2020 Family History Medical History Relation Comments COPD Father cancer Heart Disease Father cardiac disorder None Mother Relation Status Comments Father Mother Alive Social History Tobacco Use Types Packs/Day Years Used Date Smoking Tobacco: Never Smokeless Tobacco: Never Tobacco Cessation:Counseling Given: Not Answered Alcohol Use Standard Drinks/Week Comments Yes 0 (1 standard drink = 0.6 oz pur e alcohol) rare PHQ-2 Answer Date Recorded Patient Health Questionnaire-2 Score 0 07/22/2024 Comments No Sex and Gender Information Value Date Recorded Sex Assigned at Not on file Legal Sex Female 9:13 PM CDT Gender Identity Not on file Sexual Orientation Not on file Last Filed Vital Signs Vital Sign Reading Time Taken Comments Blood Pressure 112/77 07/22/2024 10:54 AM CDT Pulse 85 07/22/2024 10:54 AM CDT Temperature 36.6 C (97.8 F) 07/22/2024 10:54 AM CDT Respiratory Rate 16 07/22/2024 10:54 AM CDT Oxygen Saturation 98% 07/22/2024 10:54 AM CDT Inhaled Oxygen Concentration - - Weight 58.5 kg (129 lb) 07/22/2024 10:54 AM CDT Height 165.1 cm (5' 5) 07/22/2024 10:54 AM CDT Body Mass Index 21.47 07/22/2024 10:54 AM CDT Plan of Treatment Upcoming Encounters Date Type Department Care Team (Late st Contact Info) Description 01/20/2025 11:20 AM CDT Office Visit [facility] Family & Internal Medicine - [place] [address] [place] [phone] [place] [address] [facility] [address] [place] [address] Health Maintenance Due Date Last Done Comments Cervical Cancer Screening Pap Smear (Age 30 to 64) Every 3 Years 1967 DTaP, Tdap and Td Vaccines (1 - Tdap) 12/11/1986 Hepatitis B Vaccines (1 of 3 - 19+ 3-dose series) 12/11/1986 Cervical Cancer Screening Pap with HPV Testing (Age 30 to 64) Every 5 Years 12/11/1997 Cervical Cancer Screening with HPV 12/11/1997 Pneumococcal Vaccine: 50+ Years (1 of 1 - PCV) 12/11/2017 Zoster Vaccines (1 of 2) 12/11/2017 Annual Physical 05/04/2022 05/04/2021, 12/18/2019 Mammogram Screening 08/18/2023 08/17/2021, 08/17/2021, 04/20/2020, Additional history exists COVID-19 Vaccine ( - season) 2023 01/17/2021, 12/22/2020 Colorectal Cancer Screening FIT-DNA (3 Years) 06/30/2026 07/01/2023, 07/01/2023 Hepatitis C 06/22/2053 Postponed from 12/11/1985 (Patient Refused) PHQ-2 (Physician [place]) Completed 07/22/2024 Meningococcal B Vaccine Aged Out No l onger eligible based on patient's age to complete this topic Meningococcal Vaccine Aged Out No tamara helder eligible based on patient's age to complete this topic RSV Immunizations Under 20 Months Aged Out No longer eligible based on patient's age to complete this topic Procedures Procedure Name Priority Date/Time Associated Diagnosis Comments COLOGUARD (EXACT SCIENCE) Routine 07/01/2023 8:02 AM PBX MANAGER Screening for colon cancer MAMMOGRAM GENERIC (SCAN ORDER) 08/17/2021 from Last 3 Months or Most Recently Relevant to Health Maintenance Results * COLOGUARD (EXACT SCIENCE) (07/01/2023 8:02 AM PBX MANAGER) COLOGUARD RESULT Negative Negative [employer] (CLIA #:[id number]) Comment: NEGATIVE TEST RESULT. A negative Cologuard result indicates a low likelihood that a colorectal cancer (CRC) or advanced adenoma (adenomatous polyps with more advanced pre-malignant features) is present. The chance that a person with a negative Cologuard test has a colorectal cancer is less than 1 in 1500 (negative predictive value >99.9%) or has an advanced adenoma is less than 5.3% (negative predictive value 94.7%). These data are based on a prospective cross-sectional study of 10,000 individuals at average risk for colorectal cancer who were screened with both Cologuard and colonoscopy. (Prakash Samayoa et al, N Engl J Med 2014;370(14):1525-8437) The normal value (reference range) for this assay is negative. COLOGUARD RE-SCREENING RECOMMENDATION: Periodic colorectal cancer screening is an important part of preventive healthcare for asymptomatic individuals at average risk for colorectal cancer. Following a negative Cologuard result, the [place] Cancer Society and U.S. Multi-Society Task Force screening guidelines recommend a Cologuard re-screening interval of 3 years. References: [place] Cancer Society Guideline for Colorectal Cancer Screening: https://www.cancer.org/cancer/uqoen-vqqilf-sfhgjv/hwmlctrbt-ovulsivrv-wxcsrup/ac s-rec ommendations.html.; Jules VIEYRA, Romero OROSCO, Marta EDEN, Colorectal Cancer Screening: Recommendations for Physicians and Patients from the U.S. Multi-Society Task Force on Colorectal Cancer Screening , Am J Gastroenterology 2017; 112:4132-4140. TEST DESCRIPTION: Composite algorithmic analysis of stool DNA-biomarkers with hemoglobin immunoassay. Quantitative values of individual biomarkers are not reportable and are not associated with individual biomarker result reference ranges. Cologuard is intended for colorectal cancer screening of adults of either sex, 45 years or older, who are at average-risk for colorectal cancer (CRC). Cologuard has been approved for use by the U.S. FDA. The performance of Cologuard was established in a cross sectional study of average-risk adults aged 50-84. Cologuard performance in patients ages 45 to 49 years was estimated by sub-group analysis of near-age groups. Colonoscopies performed for a positive result may find as the most clinically significant lesion: colorectal cancer [4.0%], advanced adenoma (including sessile serrated polyps greater than or equal to 1cm diameter) [20%] or non- advanced adenoma [31%]; or no colorectal neoplasia [45%]. These estimates are derived from a prospective cross-sectional screening study of 10,000 individuals at average risk for colorectal cancer who were screened with both Cologuard and colonoscopy. (Prakash Samayoa et al, N Engl J Med 2014;370(14):7285-3832.) Cologuard may produce a false negative or false positive result (no colorectal cancer or precancerous polyp present at colonoscopy follow up). A negative Cologuard test result does not guarantee the absence of CRC or advanced adenoma (pre-cancer). The current Cologuard screening interval is every 3 years. ([place] Cancer Society and U.S. Multi-Society Task Force). Cologuard performance data in a 10,000 patient pivotal study using colonoscopy as the reference method can be accessed at the following location: www.Intcomex/results. Additional description of the Cologuard test process, warnings and precautions can be found at www.cologuard.com. STOOL STOOL SPECIMEN / Unknown 07/01/2023 8:02 AM PBX MANAGER 07/02/2023 6:47 PM CDT Epifanio Abreu MARKETING OPERATIONS ANALYST BODY FLUIDS AND STOOL S ORDERABLES Final Result [employer] [address] [place] [address], [employer] (CLIA #:[id number]) [address] [place] [address] * MAMMOGRAM GENERIC (08/17/2021) Anatomical Region Laterality Modality Other 08/17/2021 Narrative 08/17/2021 Ordered by an unspecified provider. Documents Scanned SCANNING Final Result from Last 3 Months or Most Recently Relevant to Health Maintenance Insurance [facility] Care Teams Multi Mission Helicopter Aircrewman Relationship Specialty [place] [address] [facility] [address] [place] [address] PCP - General INTERNAL MEDICINE 06/24/24 Fabricio Penaloza MD [address] [facility] [address] [place] [address] Referring Physician NORY 04/01/20
--- OUTSIDE RECORDS SUMMARY | 2024-10-24 13:11 | XMS_ITS | Clinical Summary ---
Author Organization [facility] Virtual Care Address [address] [place] [phone] Phone Care Team Providers Care District Extension Service Agent Name Role Phone Daniel Hay MD Primary [...] on file Legal Sex Female 8:46 PM ENGLISH FACULTY MEMBER Gender Identity Not on file Sexual Orientation Not on file Obstetrics History Last Filed Vital Signs Vital Sign Reading Time Taken Comments Blood Pressure 106/65 05/11/2023 12:10 PM ENGLISH FACULTY MEMBER Pulse 89 05/11/2023 12:10 PM ENGLISH FACULTY MEMBER Temperature 36.8 C (98.2 F) 05/11/2023 12:10 PM ENGLISH FACULTY MEMBER Respiratory Rate 16 05/11/2023 12:10 PM ENGLISH FACULTY MEMBER Oxygen Saturation 99% 05/11/2023 12:10 PM ENGLISH FACULTY MEMBER Inhaled Oxygen Concentration - - Weight 59 kg (130 lb) 05/11/2023 12:10 PM ENGLISH FACULTY MEMBER Height 165.1 cm (5' 5) 05/11/2023 12:10 PM ENGLISH FACULTY MEMBER Body Mass Index 21.63 05/11/2023 12:10 PM ENGLISH FACULTY MEMBER Plan of Treatment Health Maintenance Due Date Last Done Comments Breast Cancer Screening-Mammogram 1965 Cervical Cancer Screening 1967 Colon Cancer Screening-Colonoscopy 1967 Depression Screening 1967 Hepatitis C Screening 1967 DTaP/Tdap/Td Vaccine (1 - Tdap) 12/11/1978 Hepatitis B Screening 12/11/1985 Regular Well Visit/Exam 18-64 12/11/1985 Zoster Vaccine (1 of 2) 12/11/2017 Influenza Vaccine (#1) 2024 Pneumococcal vaccine <65 Aged Out No longer eligible based on patient's age to complete this topic Insurance [facility] CHOICE PLUS [employer] OPEN ACCESS Care Teams District Extension Service Agent Relationship Specialty Start Date End Date Daniel Hay MD PCP - General Internal Medicine 12/15/20
--- OUTSIDE RECORDS SUMMARY | 2024-10-24 13:11 | XMS_ITS | Data Portability ---
Author Organization [place] [facility] Address [address] [place] [phone] Assessment No assessment recorded. Plan of Treatment Reminders Order Date Submit Date Provider Last Modified By Organization Details Last Modified Time Details Appointments None recorded. Lab rapid SARS CoV 2 Ag, QL IA, respiratory specimen [address], [address] [place] [address], [place], [address], 13:41:53 rapid flu (A+B) [address], [address] [place] [address], [place], [address], 13:41:53 Referral None recorded. Procedures None recorded. Surgeries None recorded. Imaging None recorded. Medication Orders dexamethaso ne sodium phosphate 4 mg/mL injection solution 2022 023 [email or web address] Not available 14:02:44 azithromyci n 250 mg tablet 2022 023 [id number], [address] [place], [place], [phone], 13:42:01 Patient TargetsNo targets recorded. Patient Instructions Encounter Date Encounter Id Patient Instructions Last Modified By Organization Details Last Modified Time 08/15/2022 [id number] Discharge Instructions [email or web address] Not available 08/15/2022 13:41:53 Acute Sinusitis: Care Instructions [email or web address] Not available 08/15/2022 13:41:53 Reason for Referral None Reported. Results Created Date Observation Date Name Description Value Unit Range Abnormal Flag Note LastModifiedBy Organization Detail LastModifiedTime 08/16/19 23 08/15/2022 rapid flu (A+B) Flu [place] negati [place] [address] [address], [place], [address], 08/15/2022 13:41:41 08/16/19 23 08/15/2022 rapid flu (A+B) Flu B negati [place] [address] [address], [place], [address], 08/15/2022 13:41:41 08/16/19 23 08/15/2022 rapid SARS CoV 2 Ag, QL IA, respi rator y speci men Rapid SARS Antigen negati ve [place] [address] [address] [address], [place], [address], 08/15/2022 13:41:37 Result Notes None recorded. Problems Name Problem SNOMED Code Status Onset Date Resolution Date Notes Provider Name and Address Organization Details Recorded Time Cough 19775970 Active 023 LONNIE MONTEIRO [facility] 12:41:56 Sinusitis 96787439 Active 023 LONNIE MONTEIRO [facility] 12:42:03 Problem Notes None recorded. Medical [...] Body temperature Body height Body weight Systolic And Diastolic Provider Name and Address Organization Details Last Updated DateTime 98 /min 18 /min 99 % 99 % 97.3 [degF] 165.1 cm 36688.0 1 g 120/81 mm[Hg] LONNIEURBANO MONTEIRO [facility] 12:41:18 Social History Question Answer Notes LastModified by Organizat ion Details LastModified Time Tobacco Smoking Status Never Smoker LONNIE MONTEIRO [facility] 08/15/2022 12:42:10 Alcohol Use Occasional [email or web address] Information n ot available 08/15/2022 What Was The Date Of Your Most Recent Tobacco Screening? 08/15/2022 [email or web address] Information not available 08/15/2022 Sex: Unknown Functional Status Question Answer Note LastModified by Organization D etails LastModified Time Do you or have you ever used any other forms of tobacco or nicotine? No [email or web address] Information not available 08/15/2022 Mental Status None recorded. Family History Nothing Reported. Medical History Condition Response Discussed with patient No Past Medical H x N Anxiety/Depression Y Gynecological History Statement/Question Response Current Control Method Menopause LMP Unknown Obstetrics History GPAL:G 0 P 0 0 0 0 Past Encounters Encounter ID Performer Location Encounter Start Date Encounter Closed Date Diagnosis/Indication Diagnosis SNOMED-CT Code Diagnosis ICD10 Code Diagnosis Note [id number] RIAZ GAMBINO [facility] [address] [facility] [address] [place] [address] 08/15/2022 11:40:34 08/15/2022 13:56:45 Acute sinusitis 74996636 J01.90 Pain in throat 575528237 R07.0 Bilateral earache 796308 003 H92.03 Health Concerns Section Related Observation [...] throat;nasal passage blockage bilaterally;ear fullness;cough RIAZ LANGLEY [address], [place], [address], [facility] - [facility], [facility] 08/15/2022 13:43:29 OBGyn Episode No OBEpisode recorded.
--- OUTSIDE RECORDS SUMMARY | 2024-10-24 13:11 | XMS_ITS | Referral Summary ---
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 Gender Identity Not on file Sexual Orientation Not on file Last Filed Vital Signs Vital Sign Reading Time Taken Comments Blood Pressure 106/65 05/11/2023 12:10 PM AERONAUTICAL TEST ENGINEER Pulse 89 05/11/2023 12:10 PM AERONAUTICAL TEST ENGINEER Temperature 36.8 C (98.2 F) 05/11/2023 12:10 PM AERONAUTICAL TEST ENGINEER Respiratory Rate 16 05/11/2023 12:10 PM AERONAUTICAL TEST ENGINEER Oxygen Saturation 99% 05/11/2023 12:10 PM AERONAUTICAL TEST ENGINEER Inhaled Oxygen Concentration - - Weight 59 kg (130 lb) 05/11/2023 12:10 PM AERONAUTICAL TEST ENGINEER Height 165.1 cm (5' 5) 05/11/2023 12:10 PM AERONAUTICAL TEST ENGINEER Body Mass Index 21.63 05/11/2023 12:10 PM AERONAUTICAL TEST ENGINEER Plan of Treatment Not on file Insurance [employer] OPEN ACCESS Care Teams Bag Liner Relationship Specialty Start Date End Date Daniel Hay MD PCP - General Internal Medicine 12/15/20
--- OUTSIDE RECORDS SUMMARY | 2024-10-24 13:11 | XMS_ITS | Continuity of Care Document ---
Author Organization [facility] Address [address] [place] [address] Phone Care Team Providers Care Practicing Md Anesthesiologist Name Role Phone Katherine Martinez Unavailable Unavailabl e Allergies, Adverse Reactions, Alerts Substance Reaction Status Criticality No Known Allergies Active No Inform ation Procedures Procedure Date X-ray exam elbow, 3+ views Office/outpatient visit,est, mod 2023 X-ray exam elbow, 3+ views Heelbow Office/outpatient visit,new, [facility] 2023 Advance Directives Directive Yes / No Effective Date File Name No Information Encounters Encounter Description Practice Location Reason(s) For Visit Diagnoses Date Provider Providers Copied on Encounter [facility], [address], [id number], [place] tel:[phone] [facility] Injury of left elbow, initial encounterContusi on of left elbow, initial encounter 4 Deon Murphy. [address] [facility], [address], [place], [place], [id number], [place]. tel:[phone] Office/outpa tient visit,est, mod [facility], [address] [address], [place], [place], [id number], [place] tel:[phone] [facility] Left elbow (chief complaint) Contusion of left elbow, subsequent encounter b-0 4 Chan Black. [address] [facility], [address], [place], [place], [id number], [place]. tel:[phone] Office/outpa tient visit,new, [facility], [address], [place], [place], [id number], [place] tel:[phone] [facility] Left elbow (chief complaint) Injury of left elbow, initial encounterContusi on of left elbow, initial encounter Chan Black. [address] [facility], [address], [place], [place], [address], [place]. 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 She [...] She went to and Urgent Care in [place], [place] and left elbow xrays were completed. She was referred to [facility]. While in the emergency department she [...]
--- OUTSIDE RECORDS SUMMARY | 2024-10-24 13:11 | XMS_ITS | Encounter Summary ---
Author Organization [facility] Address [facility] [place] [address] Care Team Providers Care Sales Communications Manager Name Role Phone Fabricio Penaloza MD Unavailable [phone] Nan Smith Primary Care Provider [phone] Monet WhtieC Primary Care Provider [phone] Epifanio Abreu NP Primary Care Provide r Jayesh Gilmore MD Primary Care Provider [phone] John Gilmore MD Primary Care Provider [phone] Encounter Details Date Type Department Care Team (Late st Contact Info) Description 10/07/2021 [employer]Spot Message Enc [facility] Medical Group Family & Internal Medicine [address] [address] [place], [facility] Provider [facility] Social History Tobacco Use Types Packs/Day Years Used Date Smoking Tobacco: Never Smokeless Tobacco: Never Alcohol Use Standard Drinks/Week Comments Yes 0 (1 standard drink = 0.6 oz pur e alcohol) rare PHQ-2 Answer Date Recorded PHQ-2 Score - If the patient scores above 3, please move on to questions 3-9 0 05/04/2021 Comments No Sex and Gender Information Value Date Recorded Sex Assigned at Not on file Legal Sex Female 9:13 PM CDT Gender Identity Not on file Sexual Orientation Not on file documented as of this encounter Progress Notes * Radha Faust RN - 10/07/2021 11:01 AM CDT Noted. * Ana Maria Romero - 10/07/2021 10:40 AM CDT PT RETURNED YOUR CALL I READ HER YOUR NOTE V/U documented in this encounter Plan of Treatment Upcoming Encounters Date Type Department Care Team (Late st Contact Info) Description 01/20/2025 11:20 AM CDT Office Visit [facility] Medical Group Family & Internal Medicine - [place] [address] [place] [address] [place] [address] [address] documented as of this encounter Visit Diagnoses Not on filedocumented in this encounter Additional Health Concerns Assessment Noted Time PHQ-9 Depression Total Score: 0 05/04/19 9:04 AM FLY FINISHER documented as of this encounter Care Teams Sales Communications Manager Relationship Specialty Start Date End Date Nan Smith APNP [address] [address] PCP - General Nurse Practitioner Family 06/04/21 12/12/22 Monet White PA-C [address] [address] PCP - General PHYSICIAN STATION TENDER 12/13/22 06/21/23 [place] [address] [address] PCP - General NURSE PRACTITIONER ADULT HEALTH 06/22/23 11/09/23 [place] [address] [address] PCP - General INTERNAL MEDICINE 11/10/23 06/23/24 [place] [address] [facility] [address] [place] [address] PCP - General INTERNAL MEDICINE 06/24/24 Fabricio Penaloza MD [address] [facility] [address] [place] [address] Referring Physician NORY 04/01/20 documented as of this encounter
== END 2024-10-24 13:01 | disposition home or self-care (01) ==
PROVIDERS: PCP Family Medicine; Visit Provider Obstetrics & Gynecology
DX: N64.89 Other specified disorders of breast (principal)
CPT/HCPCS: 76642; 77062; 77066; G0279